=== PATIENT | female | born 1990 | race African-American/Black ===

== ENCOUNTER 2017-03-17 01:13 | Emergency (ER) | payer MEDICAID ==
[~2017-03-17] VITALS: Ht 172.7 cm; Wt 79.5 kg
[2017-03-17] MEDS ORDERED: ETON68IM3 SD (01:23)
[2017-03-17] MEDS ORDERED: LIDOCAINE HCL 1%/EPI 1:200,000/PF 10 ML VIAL ONE (01:53)
[2017-03-17] MEDS ORDERED: LIDOCAINE HCL 1%/EPI 1:200,000/PF 10 ML VIAL INJ ONE (02:00)
[2017-03-17 02:46] VITALS: BP 129/85
== END 2017-03-17 02:47 | disposition home or self-care (01) ==
LOC: EMS 01:17
DX: L02.31 Cutaneous abscess of buttock (principal); F12.90 Cannabis use, unspecified, uncomplicated
CPT/HCPCS: 10060; 99283; J3490

== ENCOUNTER 2017-07-30 06:46 | Emergency (ER) | payer SELFPAY ==
[~2017-07-30] VITALS: Ht 172.7 cm; Wt 77.0 kg
[~2017-07-30 06:46] MED LIST: ETON68IM3 SD
[2017-07-30 06:52] VITALS: BP 140/85
[2017-07-30] MEDS ORDERED: BUPIVACAINE HCL/PF 0.25% 10 ML VIAL INJ ONE (07:30)
== END 2017-07-30 07:54 | disposition home or self-care (01) ==
LOC: EMS 06:47
DX: K08.89 Other specified disorders of teeth and supporting structures (principal); F12.10 Cannabis abuse, uncomplicated; Z79.899 Other long term (current) drug therapy
CPT/HCPCS: 64400; 99284; J3490